=== PATIENT | female | born 1970 | race Two or more races ===

== ENCOUNTER 2022-04-12 03:25 | Emergency (ER) | payer OTHER ==
[~2022-04-12] VITALS: Ht 152.4 cm; Wt 56.8 kg
[2022-04-12 04:22] VITALS: BP 103/61
== END 2022-04-12 07:05 | disposition home or self-care (01) ==
LOC: EMS 03:28
DX: R91.8 Other nonspecific abnormal finding of lung field (principal); Z11.1 Encounter for screening for respiratory tuberculosis
CPT/HCPCS: 71045; 99283